=== PATIENT | female | born 1990 | race Caucasian/White ===

== ENCOUNTER 2025-05-22 14:30 | Emergency (ER) | payer BC, SELFPAY ==
[2025-05-22 14:32] VITALS: BP 157/112; PULSE 114; RESP 18; TEMP 35.8; O2SAT 99; BMI 43.9
--- NOTE | 2025-05-22 15:20 | EX.ED.GENINJ ---
HPI History of Present Illness Chief Complaint: Laceration Detail of Chief Complaint: Laceration left index finger Informant: patient Onset/Context/Timing Onset: Today and Hours Mechanism/Context: Incised Location of pain/injuries: Left hand (Left index finger between the MCP joint and PIP joint) Location: Left index finger as previously DrMaximo Current Severity: Patient states she has no sensation. 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 She was using a knife to cut off the tape with her right hand. She sustained a laceration radial side left index finger between the PIP and MCP joint. Patient states she has no sensation on that side of the finger and has difficulty moving her finger. Patient has no allergies. Patient ate at 1300. Patient has no allergies to medication. Prior similar symptoms: No Recent Illness/Hospitalization: No PFSH PFSH Home Medications Medication Instructions Recorded Last Taken Type cephalexin 500 mg capsule 500 mg PO Q6 #16 CAPSULES 05/22/25 Unknown Rx Allergy/AdvReac Type Severity Reaction Status Date / Time No Known Allergies Allergy Verified 05/22/25 14:31 Social History Smoking Status: Never smoker ROS ROS ED Constitutional Constitutional ED: Reports weight loss; Denies chills, fever(s), subjective or sweats Integumentary Reports other Details: Laceration between the MCP joint and PIP joint radial side left index finger ; Denies abscess, Abrasions or rash Neurologic Neurologic: Reports paresthesias LUE (Left index finger) EXAM Physical Exam Const Vital Signs: 05/22/25 14:32 Temperature 96.5 F L Temperature Source Temporal Pulse Rate 114 H Respiratory Rate 18 Blood Pressure 157/112 H Blood Pressure Mean 127 Pulse Ox 99 Oxygen Delivery Method Room Air Positive well nourished and well developed General Appearance ED: well developed and NAD HEENT HEENT Narrative: HEENT exam is grossly unremarkable. Resp normal respiratory effort Cardio regular rhythm Rate: regular rate Extremity Negative for normal to inspection or full ROM Extremity Narrative: Patient has a laceration between the PIP joint and MCP joint of the left index finger on the radial side. Patient is unable to flex her left index finger. Patient has no sensation on the radial side distal to the laceration. Patient is able to extend. Neuro oriented x3, CN's II-XII intact bilaterally, No moves all extremities, No no focal motor deficits and No no sensory deficits noted Sensorium / Orientation: alert Psych mental status grossly normal and thought process normal Skin Skin Narrative: Laceration as previously noted. PROC Procedures Upper Extremity Splints Upper Extremity Splint: - (Aluminum extension block splint fabricated) MDM MDM MDM Narrative Medical decision making narrative: Patient laceration will need closure. Contacted Dr. Ortiz who is on-call to discuss case determine if he would like to fix this primarily versus me closing and delay repair. Radiography Chest X-Ray - ED: Read by ED Physician (Three-view x-ray of the left index finger reveals no abnormality. Is no foreign body, there is no evidence of trauma to the phalanx. There is entirely reviewed interpreted by me at 1632.) Diagnostic Testing: Clinical Impression(s) from Imaging Studies Finger X-Ray 05/22/25 16:06 IMPRESSION: No acute fracture or dislocation. No radiopaque foreign body. Reading Location: [facility] [place] Management Discussion w/another healthcare provider: Wax Molder (Spoke with hand surgeon. He requested x-ray. X-ray was obtained. She is to call the office in the morning to be seen tomorrow after knee and schedule surgery) Discharge Plan Triage Chief Complaint: Laceration ED Provider: Butch Varner Dx/Rx/DC Orders Clinical Impression: Laceration of left index finger with tendon involvement, Laceration of blood vessel of left index finger, initial encounter Instructions: ED Hand Laceration Nerve Injury Prescriptions: New cephalexin 500 mg capsule 500 mg PO Q6 Qty: 16 0RF Primary Care Provider: Care Physician,No Primary Referrals: Solomon Ortiz MD [Med Staff - Active Staff, Plastic Surgery] - 1 Day for another exam Care Physician,No Primary [Primary Care Provider, Medical] Activity Restrictions/Additional Instructions: Call Dr. Solomon Ortiz's office tomorrow to be seen later in the day Print Language: [place] Disposition Disposition: Home, Self Care
--- NOTE | 2025-05-22 16:06 | RAD_ITS ---
PROCEDURE: LEFT FINGER(S) MIN 2 VIEWS 05/22/2025 REASON FOR EXAM: INJURY/PAIN TECHNIQUE: Procedure Code: RADFIN Modality: DX Procedure: FINGER(S) MIN 2 VIEWS Laterality: Left COMPARISON: None. FINDINGS: No acute fracture or dislocation. Alignment is anatomic. Preserved joint spaces. No aggressive osseous lesion. Mild soft tissue swelling. No radiopaque foreign body visualized. RAD/Finger(s) Min 2 Views IMPRESSION: No acute fracture or dislocation. No radiopaque foreign body. Reading Location: [id number]
[2025-05-22] MEDS: Lidocaine 1% (20 ml mdv) 20 ML Vial INFILT (16:38)
[2025-05-22 17:36] VITALS: BP 134/78; PULSE 64; RESP 18; TEMP 36.6; O2SAT 99
== END 2025-05-22 17:37 | disposition home or self-care (01) ==
PROVIDERS: Emergency Provider Emergency Medicine; Visit Provider Emergency Medicine
DX: S61.211A Laceration without foreign body of left index finger without damage to nail, initial encounter (principal); W26.0XXA Contact with knife, initial encounter; S65.912A Laceration of unspecified blood vessel at wrist and hand level of left arm, initial encounter
CPT/HCPCS: 12002; 73140; 99283

== ENCOUNTER 2025-05-24 09:59 | Day surgery (SDC) | payer BC, SELFPAY ==
[2025-05-24] VITALS (9 sets, daily range): BP systolic 124–143; BP diastolic 61–88; PULSE 75–88; RESP 16–18; TEMP 36.1–36.4; O2SAT 93–98; BMI 43.1
[2025-05-24 10:28] LABS: Internal QC Validated? YES +Cl - CLEAR BKGD; Pregnancy, Urine Negative Negative; Record Kit Lot#,Urine Preg 980607
[2025-05-24] MEDS: Lactated Ringers 1,000 ML 15 ML IV (10:47)
--- NOTE | 2025-05-24 11:00 | PCM.PRE.AN2 ---
ASA Classification* ASA Classification ASA Classification: 3 Assessment & Plan Anesthesia* Anesthesia Assessment Anesthesia Assessment: Discussed sedation and/or anesthesia options, risks, benefits, and alternatives with patient/parents/legal guardian/POA. Questions invited. The patient/parents/legal guardian/POA seems to understand and agrees to proceed with anesthesia plan. Reviewed the physical assessment, medical history, allergy history and patient home medications list prior to surgery/procedure/anesthetic and documented any changes. Performed airway and anesthesia risk assessments. Anesthesia Type Anesthesia Type: General History Source History Obtained from:: Patient and Chart Anesthesia Focused Assessment* Temperature: 97 F Pulse Rate: 88 Blood Pressure: 139/84 Respiratory Rate: 18 Pulse Ox: 98 Oxygen Delivery Method: Room Air Airway Assessment Mouth opens: >3 cm Mallampati Score: I Teeth Condition: Missing (Patient had a top left tooth removed secondary to impaction. Small remaining gap.) Neck Range of motion (ROM): Full ROM Labs Anesthesia Preop lab: CBC CHEMISTRY COAG Urine Test Negative Negative Today, 10:20 Pre-Assessment Diagnosis/Proposed Procedure Planned Operative Procedure(s): FLEXOR TENDON REPAIR LEFT INDEX FINGER Anesthesia History Anesthesia History - casino floor person: Anesthesia History - casino floor person Hx Hospitalization No 05/23/25 09:53 Any Problems With Anesthesia No 05/23/25 09:53 Cholinesterase deficiency No 05/23/25 09:53 You/Your Family Experience No 05/23/25 09:53 fever (hyperthermia) with Relationship Recent Exposure to Contagious No 05/24/25 10:31 Disease Does patient have nerve No 05/23/25 09:53 stimulator Patient instructed to have device shut off --Does patient have Pacemaker No 05/24/25 10:31 or ICD? When Was Last Pacemaker Check QUESTION #4 FULL TEXT: You/Your Family Experience fever (hyperthermia) with Anesthesia Last Oral Intake Last Oral intake: Last Oral Intake NPO since 04:00 05/24/25 10:31 Meds taken in AM with sips of Yes 05/24/25 10:31 water? Meds patient instructed to bupropion, buspirone, 05/24/25 10:31 take am of surgery desvenlafaxine, lamotrigine Any additional information?: Yes Meds taken in AM with sips of water?: Yes PONV PONV - casino floor person: PONV - casino floor person Female Yes 05/23/25 09:53 HX of Motion Sickness No 05/23/25 09:53 HX of N/V After Surgery No 05/23/25 09:53 Non-Smoker Yes 05/23/25 09:53 Duration of Surgery greater Yes 05/23/25 09:53 than 60 minutes Number of Risk Factors 3 05/23/25 09:53 PONV Score Moderate Risk 05/23/25 09:53 Height & Weight Height & Weight: Anesthesia: Height & Weight Height 5 ft 2 in 05/24/25 10:31 Weight: 107 kg 05/24/25 10:31 Body Mass Index (BMI) 43.1 05/24/25 10:31 Respiratory Assessment Respiratory Assessment - casino floor person: Respiratory Tract Infection Hx - casino floor person Hx Respiratory Tract Infection No 05/23/25 09:53 STOP Sleep Apnea STOP Sleep Apnea - casino floor person: STOP Sleep Apnea - casino floor person Hx Hypertension No 05/23/25 09:53 Hx Sleep Apnea No 05/23/25 09:53 CPAP BIPAP Do you snore loudly (louder No 05/23/25 09:53 than talking or can be heard Do you often feel tired/ No 05/23/25 09:53 fatigued/ sleepy during daytime? Has anyone observed you stop No 05/23/25 09:53 breathing during sleep? STOP Results Negative 05/23/25 09:53 QUESTION #5 FULL TEXT : Do you snore loudly (louder than talking or can be heard through closed doors)? Tobacco Use History Tobacco Use History - casino floor person: Tobacco Use History - casino floor person Tobacco Use Smoking Status Never smoker 05/23/25 13:23 Hx Tobacco Use No 05/23/25 09:53 Years Smoking Packs Smoked per Day Smoking Cessation Date was within the last 15 years Hx Smoking Cessation Date Hx Smoking Cessation Counseling Any additional information?: Yes Tobacco Use: - (Patient smokes marijuana. 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 Specify any problems Hx of Preganancy in last 3 N/A 05/23/25 09:53 Months Nurse Filling Out Transfusion NBUCHER 05/23/25 09:53 & Questions: Date: 05/23/25 05/23/25 09:53 Time: 09:55 05/23/25 09:53 Patient unable to answer at this time (ie. confused, unrespo /Reproduction History /Reproductive History - casino floor person: /Reproductive Hx- casino floor person Hx Now No 05/23/25 09:53 Gestational Age (in weeks): EDC: Hx Hx Para Hx Section SAB No 05/23/25 09:53 Active Medications Active Medications: Current Medications Generic Name Dose Route Start Last Admin Trade Name Freq PRN Reason Stop Dose Admin Cefazolin Sodium 2 gm/ Sodium 110 mls @ 200 mls/hr 05/24/25 10:30 Chloride IV 05/24/25 11:02 INTRAOP ONE Lactated Ringer's 1,000 mls @ 15 mls/hr 05/24/25 10:15 05/24/25 10:47 IV 15 mls/hr .Q48H VINCE Administration PFSH Medical History Wears glasses Depression Anxiety Marijuana use Migraine headache Gastric reflux Smoker Home Medications ?Medication ?Instructions ?Recorded ?Last Taken ?Type cephalexin 500 mg capsule 500 mg PO Q6 #16 CAPSULES 05/22/25 05/24/25 Rx MEDICAL MARIJUANA DAILY 05/23/25 05/21/25 History (INFORMATIONAL USE ONLY-PT USES MEDICAL MARIJUANA bupropion HCl 150 mg 24 hr tablet, 450 mg PO DAILY 05/23/25 05/24/25 History extended release buspirone 30 mg tablet 30 mg PO BID 05/23/25 05/24/25 History desvenlafaxine succinate 100 mg 100 mg PO DAILY 05/23/25 05/24/25 History tablet,extended release 24 hr dextroamphetamine-amphetamine 10 1 tab PO DAILY 05/23/25 05/23/25 History mg tablet dextroamphetamine-amphetamine ER 1 cap PO DAILY 05/23/25 05/23/25 History 30 mg 24hr capsule,extend release lamotrigine 100 mg tablet 100 mg PO BID 05/23/25 05/24/25 History Allergy/AdvReac Type Severity Reaction Status Date / Time No Known Allergies Allergy Verified 05/24/25 10:27 Surgical History History of repair of anterior cruciate ligament History of wisdom tooth extraction Social History Smoking Status: Never smoker alcohol intake: current substance use type: marijuana additional social history: pt denies vaping, denies blood clots, pt does use marijuana and edibles, pt does use aspirin and ibuprofen as needed Review of Systems (Anesthesia) ROS Narrative System reviewed and no additional complaints, except as documented.
--- NOTE | 2025-05-24 11:08 | PCM.HP.STD ---
HPI - General HPI Narrative ZEYAD HAMILTON, is a 35 F left hand dominant who presents for left index finger exploration and for possible flexor tendon injury and nerve graft. She sustained the injury on 05/22/25 attempting to remove tape with a knife for her hockey stick, resulting in a cut on the radial side of the left index finger, just proximal to the PIP joint yesterday, 22 May 2025. She presented to the ED evaluation and spoke with Dr. Ortiz. Xray was obtained which was negative for fracture or malalignment. Incision was repaired and she was started on course of oral keflex. She was evaluated in the office by Dr. Ortiz the following day. The patient was unable to bend the affected finger, indicating potential tendon involvement. She reports numbness along the radial side of her left index finger. Given her concerning symptoms Dr. Ortiz discussed surgical intervention. Of note she has history of carpal tunnel syndrome in the left hand, for which she previously received cortisone injections. She reports no recent symptoms related to carpal tunnel syndrome. Patient is left-hand dominant. She has no history personally or within her family of bleeding or clotting disorders. 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 She denies nicotine use, does not smoke. Denies changes in health status since visit yesterday. She continues to numbness and inability to bend her affected finger. Denies numbness, tingling, weakness in other digits. [facility] Medical History Wears glasses Depression Anxiety Marijuana use Migraine headache Gastric reflux Smoker Home Medications ?Medication ?Instructions ?Recorded ?Last Taken ?Type cephalexin 500 mg capsule 500 mg PO Q6 #16 CAPSULES 05/22/25 05/24/25 Rx MEDICAL MARIJUANA DAILY 05/23/25 05/21/25 History (INFORMATIONAL USE ONLY-PT USES MEDICAL MARIJUANA bupropion HCl 150 mg 24 hr tablet, 450 mg PO DAILY 05/23/25 05/24/25 History extended release buspirone 30 mg tablet 30 mg PO BID 05/23/25 05/24/25 History desvenlafaxine succinate 100 mg 100 mg PO DAILY 05/23/25 05/24/25 History tablet,extended release 24 hr dextroamphetamine-amphetamine 10 1 tab PO DAILY 05/23/25 05/23/25 History mg tablet dextroamphetamine-amphetamine ER 1 cap PO DAILY 05/23/25 05/23/25 History 30 mg 24hr capsule,extend release lamotrigine 100 mg tablet 100 mg PO BID 05/23/25 05/24/25 History Allergy/AdvReac Type Severity Reaction Status Date / Time No Known Allergies Allergy Verified 05/24/25 10:27 Surgical History History of repair of anterior cruciate ligament History of wisdom tooth extraction Social History Smoking Status: Never smoker alcohol intake: current substance use type: marijuana additional social history: pt denies vaping, denies blood clots, pt does use marijuana and edibles, pt does use aspirin and ibuprofen as needed ROS ROS Narrative General: Denies fever, chills HEENT: Denies headaches, vision changes, sore throat Cardio: Denies chest pain, leg edema Pulmonary: Denies shortness of pain, cough, wheezing GI: Denies nausea, vomiting, diarrhea Vital Signs Vital Signs Vital Signs: 05/24/25 10:31 05/24/25 10:31 05/24/25 11:08 Temperature 97 F L 97 F L Temperature Source Temporal Pulse Rate 88 88 Respiratory Rate 18 18 Respiratory Pattern Normal Blood Pressure 139/84 H 139/84 H Blood Pressure Mean 102 Blood Pressure Source Monitor Blood Pressure Position Semi-Fowlers Blood Pressure Location Right Arm Pulse Ox 98 98 Oxygen Delivery Method Room Air Room Air Weight Weight: 235 lb 14.314 oz Body Mass Index (BMI) 43.1 Physical Exam Narrative Afebrile/VSS. Lying in bed in no acute distress Speaking in full sentences with no increased effort or accessory muscle use Abdomen is soft, not distended Dressing was removed. Scant bloody drainage noted. Left index finger sutures are intact, no drainage or bleeding. Some swelling noted, no induration, erythema or streaking noted Able to initiate MCP flexion, unable to flex 90 degrees for MCP, no flexion with PIP, DIP. Able to extend and hyperextend. No collateral ligament laxity. Decreased sensation to light touch to radial side of left index finger. Intact to ulnar side. All other digits with normal sensation Cap refill <2 sec, pink and well perfused. Results Lab / Micro Data Labs: Laboratory Results - last 24 hr 05/24/25 10:20: Urine Test Negative
[2025-05-24] MEDS: Midazolam 2 MG/2 ML Syringe IV (11:43)
[2025-05-24] MEDS: Cefazolin 1 GM/5 ML Vial 2 GM IV (11:45)
[2025-05-24] MEDS: fentaNYL 100 MCG/2 ML Ampul IV (11:52)
[2025-05-24] MEDS: Lidocaine 1% (5 ml sdv) 5 ML Vial 10 ML IV (11:56)
[2025-05-24] MEDS: Lidocaine 1% /Epi 1:100 (20ml) 20 ML Vial (14:22)
--- NOTE | 2025-05-24 14:54 | PCM.POST.ANE ---
Anesthesia: Postop Eval I Current Vital Signs Temperature: 97.6 F Pulse Rate: 82 Blood Pressure: 141/88 Respiratory Rate: 16 Pulse Ox: 93 Oxygen Delivery Method: Room Air Assessment Airway patent: Yes Spontaneous unlabored respirations: Yes Mental status: Awake and Calm nausea: No Vomiting: No Anesthesia Complication: No Fluid Hydration Crystalloid volume administer (ml): 1,200 Total IV fluid infused: 1,200 Progress Note Anesthesia document: Postop Eval 1 completed: Yes
--- NOTE | 2025-05-24 16:15 | POSTOPAN2_ITS ---
Anesthesia Postop Eval I Sum Postop Eval Completion status Anesthesia document: Postop Eval 1 completed: Yes Anesthesia Postop Eval I Summary Anesthesia Postop Eval I Summary: Anesthesia Postop Eval I: Assessment Summary Airway patent Yes 05/24/25 14:54 NARCOTICS AND/OR VICE DETECTIVE.SKOBY Spontaneous unlabored Yes 05/24/25 14:54 NARCOTICS AND/OR VICE DETECTIVE.AL respirations Mental status Awake,Calm 05/24/25 14:54 NARCOTICS AND/OR VICE DETECTIVE.SKOBY nausea No 05/24/25 14:54 NARCOTICS AND/OR VICE DETECTIVE.SKOBY Vomiting No 05/24/25 14:54 NARCOTICS AND/OR VICE DETECTIVE.HUMREAOBPete Anesthesia Postop Eval I: Fluid Summary Crystalloid volume administer 1,200 05/24/25 14:54 NARCOTICS AND/OR VICE DETECTIVE.SKOBY (ml) Colloids volume administered ( ml) Blood Product volume administered (ml) Total IV fluid infused 1,200 05/24/25 14:54 NARCOTICS AND/OR VICE DETECTIVE.HUMERAOBPete Anesthesia Postop Eval I: Summary Notes Anesthesia Complication No 05/24/25 14:54 NARCOTICS AND/OR VICE DETECTIVE.AL Anesthesia Complication Comment: Post-operative progress note Anesthesia: Postop Eval II Evaluation Mental status: Awake Pain Level: 2 nausea: No Vomiting: No
--- NOTE | 2025-05-24 16:15 | PCM.POSTANE2 ---
Anesthesia Postop Eval I Sum Postop Eval Completion status Anesthesia document: Postop Eval 1 completed: Yes Anesthesia Postop Eval I Summary Anesthesia Postop Eval I Summary: Anesthesia Postop Eval I: Assessment Summary Airway patent Yes 05/24/25 14:54 MICRO LAB ANALYST.SKOBY Spontaneous unlabored Yes 05/24/25 14:54 MICRO LAB ANALYST.AL respirations Mental status Awake,Calm 05/24/25 14:54 MICRO LAB ANALYST.SKOBY nausea No 05/24/25 14:54 MICRO LAB ANALYST.SKOBY Vomiting No 05/24/25 14:54 MICRO LAB ANALYST.HUMERAOBPete Anesthesia Postop Eval I: Fluid Summary Crystalloid volume administer 1,200 05/24/25 14:54 MICRO LAB ANALYST.SKOBY (ml) Colloids volume administered ( ml) Blood Product volume administered (ml) Total IV fluid infused 1,200 05/24/25 14:54 MICRO LAB ANALYST.HUMERAOBPete Anesthesia Postop Eval I: Summary Notes Anesthesia Complication No 05/24/25 14:54 MICRO LAB ANALYST.AL Anesthesia Complication Comment: Post-operative progress note Anesthesia: Postop Eval II Evaluation Mental status: Awake Pain Level: 2 nausea: No Vomiting: No
--- NOTE | 2025-05-24 16:17 | PCM.OPRPT ---
Operative Report (Standard) Operative Information Date of Procedure: 05/24/25 Pre-Operative Diagnosis: 1) Left index finger radial digital nerve laceration 2) Left index finger zone 2 flexor digitorum superficialis (FDS) and zone 2 flexor digitorum profundus (FDP) lacerations Post-Operative Diagnosis: Same Surgery/Procedure Performed: 1) repair of left index finger zone 2 FDS laceration, ulnar slip 2) repair of left index finger zone 2 FDP laceration 3) repair of left index finger radial digital nerve with cadaver interposition allograft tong hooker: Yes Caregivers Homecare: Chacha Gonzales Tasks completed by historian research assistant: Closing and Retracting Type of Anesthesia: General/Supplemental (10 cc of quarter percent Marcaine at the end of the case) RN Documented Start/Stop Times: Operation Date: 05/24/25 11:30 Case Time Into Pre-Op 05/24/25 10:12 Out of Pre-Op 05/24/25 11:21 Anesthesia Start 05/24/25 11:42 Into Room 05/24/25 11:42 Procedure Start 05/24/25 12:11 Procedure End 05/24/25 14:33 Anesthesia End 05/24/25 14:44 Out of Room 05/24/25 14:44 Into Recovery 05/24/25 14:45 Into Phase II Recovery 05/24/25 15:16 Out of Recovery 05/24/25 15:16 Out of Phase II 05/24/25 15:56 Procedure Start Time: 12:11 Procedure Stop Time: 14:33 Select all DRAINS/GRAFTS/IMPLANTS that apply: Graft (Nerve allograft and nerve protector) Graft details: Advance nerve graft, 1 to 2 mm x 30 mm: [id number] AxoGaurd JONES+ nerve protector 2 x 2 cm: [id number] Estimated Blood Loss: 15 cc Specimen collected: No Description of surgery: Indications: Patient is a 35-year-old female who caught her left index finger on the radial side just proximal to the PIP joint on 22 May 2025 with a knife while cutting tape off of a hockey stick. She presents today for repair of presumably cut flexor tendons and the radial digital nerve. She understands the risks, benefits, and alternatives to procedure. Procedure details: Patient was correct identified in preoperative holding where she was marked. She was taken back to the operating room and administered general anesthesia and prepped and draped in sterile fashion. A timeout was performed. Tourniquet was applied on the left arm. Sutures were removed and the wound was irrigated with 1 L of normal saline. The Esmarch was used and the tourniquet was inflated to 250 mmHg. Under the 3.5 X loupe magnification, the laceration was incorporated into Jan-style flaps exposing the volar surface of the finger proximally and distally over P2 and proximally over the A1 blair. The cut ends of the radial digital nerve were identified. The FDS and FDP were found proximally at the level of the A1 blair which was released with a 15 blade scalpel. Using a tendon passer as the FDS and FDP were then passed under the A2 blair and kept into place with a Fredis needle, abutting the distal stumps of the FDP and the FDS. First the FDP was repaired with a 4-0 looped FiberWire (Tsuge-Renee 4 core strand repair), followed by running epitendinous 6-0 Prolene suture. The FDS was then repaired (ulnar slip only) with a 4-0 looped FiberWire (Tsuge-Renee 4 core strand repair), followed by running epitendinous 6-0 Prolene suture. Attention was then turned to the nerve repair which was performed with the microscope. There was a 1 cm gap between healthy fresh ends of the nerve (there was cut back to sprouting healthy appearing fascicles). An interposition nerve allograft was then placed (see notes above) so as to provide a tension-free repair using an 8-0 nylon interrupted suture on the proximal and distal ends of the nerve. The suture lines were then reinforced with nerve protectors wrapped around the anastomoses with small microvascular clips keeping them abutting the nerve and nerve allograft construct. The tourniquet was then let down and hemostasis obtained with bipolar electrocautery. The wound was further irrigated with Irrisept and copious amounts normal saline. A digital block was performed as noted above. A dorsal blocking splint was then applied with the fingers in slight flexion. Patient tolerated the procedure well. She was awakened and taken the PACU in stable condition. Postoperative plan: Patient will begin modified-Davalos flexor tendon protocol on Wednesday, 28 May 2025, for early range of motion protocol. She is not to use the left hand at all for anything other than hand therapy and is to stay in the splint until she is given a modified splint by the occupational therapist. Surgical Findings: Complete laceration of the radial digital nerve just proximal to the PIP joint Complete lacerations of the FDP and FDS just proximal to the PIP joint Complications Complications: No
== END 2025-05-24 15:56 | disposition home or self-care (01) ==
LOC: SDC 10:09 → AC 10:11
PROVIDERS: Anesthesiology; Referring Provider Surgery Plastic and Reconstructive Surgery; Visit Provider Surgery Plastic and Reconstructive Surgery
PROC: (CPT 64831; principal; 2025-05-24 11:15)
DX: S64.491A Injury of digital nerve of left index finger, initial encounter (principal); F41.9 Anxiety disorder, unspecified; F32.A Depression, unspecified; Z79.899 Other long term (current) drug therapy; X58.XXXA Exposure to other specified factors, initial encounter
CPT/HCPCS: 64831; 26350; 01810; 81025; C1762; J2405

== ENCOUNTER 2025-08-10 12:16 | Day surgery (SDC) | payer OTHER, SELFPAY ==
[2025-08-10] VITALS (10 sets, daily range): BP systolic 88–132; BP diastolic 64–81; PULSE 82–92; RESP 12–16; TEMP 36.1–36.8; O2SAT 91–100; BMI 43.9
[2025-08-10 12:40] LABS: Internal QC Validated? YES +Cl - CLEAR BKGD; Pregnancy, Urine Negative Negative
[2025-08-10] MEDS: Lactated Ringers 1,000 ML 15 ML IV (12:54)
--- NOTE | 2025-08-10 13:24 | PCM.PRE.AN2 ---
ASA Classification* ASA Classification ASA Classification: 3 Assessment & Plan Anesthesia* Anesthesia Assessment Anesthesia Assessment: Discussed sedation and/or anesthesia options, risks, benefits, and alternatives with patient/parents/legal guardian/POA. Questions invited. The patient/parents/legal guardian/POA seems to understand and agrees to proceed with anesthesia plan. Reviewed the physical assessment, medical history, allergy history and patient home medications list prior to surgery/procedure/anesthetic and documented any changes. Performed airway and anesthesia risk assessments. Anesthesia Type Anesthesia Type: General History Source History Obtained from:: Patient and Chart Anesthesia Focused Assessment* Temperature: 97.8 F Pulse Rate: 85 Blood Pressure: 131/64 Respiratory Rate: 16 Pulse Ox: 100 Oxygen Delivery Method: Room Air Airway Assessment Mouth opens: >3 cm Mallampati Score: I Teeth Condition: Intact Neck Range of motion (ROM): Full ROM Labs Anesthesia Preop lab: CBC CHEMISTRY COAG Urine Test Negative Negative Today, 12:30 Pre-Assessment Diagnosis/Proposed Procedure Planned Operative Procedure(s): LEFT FLEXOR TENDON REPAIR INDEX FINGER Anesthesia History Anesthesia History - implant polisher: Anesthesia History - implant polisher Hx Hospitalization No 08/09/25 11:04 Any Problems With Anesthesia No 08/09/25 11:04 Cholinesterase deficiency No 08/09/25 11:04 You/Your Family Experience No 08/09/25 11:04 fever (hyperthermia) with Relationship Recent Exposure to Contagious No 08/10/25 12:49 Disease Does patient have nerve No 08/09/25 11:04 stimulator Patient instructed to have device shut off --Does patient have Pacemaker No 08/10/25 12:49 or ICD? When Was Last Pacemaker Check QUESTION #4 FULL TEXT: You/Your Family Experience fever (hyperthermia) with Anesthesia Last Oral Intake Last Oral intake: Last Oral Intake NPO since 08:00 08/10/25 12:49 Meds taken in AM with sips of Yes 08/10/25 12:49 water? Meds patient instructed to see medlist 08/10/25 12:49 take am of surgery Any additional information?: Yes NPO since: 08:00 (Patient had water 8 AM.) Meds taken in AM with sips of water?: Yes PONV PONV - implant polisher: PONV - implant polisher Female Yes 08/09/25 11:04 HX of Motion Sickness No 08/09/25 11:04 HX of N/V After Surgery No 08/09/25 11:04 Non-Smoker Yes 08/09/25 11:04 Duration of Surgery greater Yes 08/09/25 11:04 than 60 minutes Number of Risk Factors 3 08/09/25 11:04 PONV Score Moderate Risk 08/09/25 11:04 Height & Weight Height & Weight: Anesthesia: Height & Weight Height 5 ft 2 in 08/10/25 12:49 Weight: 109 kg 08/10/25 12:49 Body Mass Index (BMI) 43.9 08/10/25 12:49 Respiratory Assessment Respiratory Assessment - implant polisher: Respiratory Tract Infection Hx - implant polisher Hx Respiratory Tract Infection No 08/09/25 11:04 STOP Sleep Apnea STOP Sleep Apnea - implant polisher: STOP Sleep Apnea - implant polisher Hx Hypertension No 08/09/25 11:04 Hx Sleep Apnea No 08/09/25 11:04 CPAP BIPAP Do you snore loudly (louder No 08/09/25 11:04 than talking or can be heard Do you often feel tired/ No 08/09/25 11:04 fatigued/ sleepy during daytime? Has anyone observed you stop No 08/09/25 11:04 breathing during sleep? STOP Results Negative 08/09/25 11:04 QUESTION #5 FULL TEXT : Do you snore loudly (louder than talking or can be heard through closed doors)? 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 Specify any problems Hx of Preganancy in last 3 No 08/09/25 11:04 Months Nurse Filling Out Transfusion DSCHRIBER 08/09/25 11:04 & Questions: Date: 08/09/25 08/09/25 11:04 Time: 11:05 08/09/25 11:04 Patient unable to answer at this time (ie. confused, unrespo /Reproduction History /Reproductive History - implant polisher: /Reproductive Hx- implant polisher Hx Now No 08/09/25 11:04 Gestational Age (in weeks): EDC: Hx Hx Para Hx Section SAB No 08/09/25 11:04 Does the father of the baby or his family experience fever w Father of the baby Malignant Hypertension history comment Active Medications Active Medications: Current Medications Generic Name Dose Route Start Last Admin Trade Name Freq PRN Reason Stop Dose Admin Lactated Ringer's 1,000 mls @ 15 mls/hr 08/10/25 13:00 08/10/25 12:54 IV 15 mls/hr .Q48H VINCE Administration PFSH Medical History Wears glasses Depression Anxiety Marijuana use Migraine headache Gastric reflux Smoker Home Medications ?Medication ?Instructions ?Recorded ?Last Taken ?Type MEDICAL MARIJUANA DAILY 05/23/25 05/21/25 History (INFORMATIONAL USE ONLY-PT USES MEDICAL MARIJUANA bupropion HCl 150 mg 24 hr tablet, 450 mg PO DAILY 05/23/25 08/10/25 History extended release buspirone 30 mg tablet 30 mg PO BID 05/23/25 08/10/25 History desvenlafaxine succinate 100 mg 100 mg PO DAILY 05/23/25 08/10/25 History tablet,extended release 24 hr dextroamphetamine-amphetamine 10 1 tab PO 1200 05/23/25 05/23/25 History mg tablet dextroamphetamine-amphetamine ER 1 cap PO DAILY 05/23/25 05/23/25 History 30 mg 24hr capsule,extend release lamotrigine 100 mg tablet 100 mg PO BID 05/23/25 08/10/25 History Allergy/AdvReac Type Severity Reaction Status Date / Time No Known Allergies Allergy Verified 08/10/25 12:35 Surgical History History of finger surgery History of repair of anterior cruciate ligament History of wisdom tooth extraction Social History Smoking Status: Never smoker alcohol intake: current substance use type: marijuana additional social history: pt denies vaping, denies blood clots, pt does use marijuana and edibles, pt does use aspirin and ibuprofen as needed Review of Systems (Anesthesia) ROS Narrative System reviewed and no additional complaints, except as documented.
--- NOTE | 2025-08-10 14:13 | PCM.HP.STD ---
HPI - General HPI Narrative ZEYAD HAMILTON, is a 35 F who presents with rupture of her left index finger flexor tendon repair. 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 She presents today for repair of the tendon in the setting of recent flexor tendon zone 2 repair 2.5 months ago. [facility] Medical History Wears glasses Depression Anxiety Marijuana use Migraine headache Gastric reflux Smoker Home Medications ?Medication ?Instructions ?Recorded ?Last Taken ?Type MEDICAL MARIJUANA DAILY 05/23/25 05/21/25 History (INFORMATIONAL USE ONLY-PT USES MEDICAL MARIJUANA bupropion HCl 150 mg 24 hr tablet, 450 mg PO DAILY 05/23/25 08/10/25 History extended release buspirone 30 mg tablet 30 mg PO BID 05/23/25 08/10/25 History desvenlafaxine succinate 100 mg 100 mg PO DAILY 05/23/25 08/10/25 History tablet,extended release 24 hr dextroamphetamine-amphetamine 10 1 tab PO 1200 05/23/25 05/23/25 History mg tablet dextroamphetamine-amphetamine ER 1 cap PO DAILY 05/23/25 05/23/25 History 30 mg 24hr capsule,extend release lamotrigine 100 mg tablet 100 mg PO BID 05/23/25 08/10/25 History Allergy/AdvReac Type Severity Reaction Status Date / Time No Known Allergies Allergy Verified 08/10/25 12:35 Surgical History History of finger surgery History of repair of anterior cruciate ligament History of wisdom tooth extraction Social History Smoking Status: Never smoker alcohol intake: current substance use type: marijuana additional social history: pt denies vaping, denies blood clots, pt does use marijuana and edibles, pt does use aspirin and ibuprofen as needed Patient's Goals Of Care . What would you like to achieve or improve as a result of your hospital stay?: Repair of the flexor tendon Vital Signs Vital Signs Vital Signs: 08/10/25 12:49 08/10/25 12:49 08/10/25 12:49 Temperature 97.8 F Temperature Source Temporal Pulse Rate 85 Respiratory Rate 16 Respiratory Pattern Normal Blood Pressure 131/64 H Blood Pressure Mean 86 Blood Pressure Source Monitor Blood Pressure Position Semi-Fowlers Blood Pressure Location Right Arm Baseline BP 131/64 Pulse Ox 100 Oxygen Delivery Method Room Air 08/10/25 13:32 Temperature 97.8 F Temperature Source Pulse Rate 85 Respiratory Rate 16 Respiratory Pattern Blood Pressure 131/64 H Blood Pressure Mean Blood Pressure Source Blood Pressure Position Blood Pressure Location Baseline BP Pulse Ox 100 Oxygen Delivery Method Room Air Weight Weight: 240 lb 4.862 oz Body Mass Index (BMI) 43.9 Physical Exam Narrative Patient endorses excellent sensation distal to the initial zone of injury on the left index finger, however on my exam she is unable to bend the DIP or the PIP joints (consistent with rupture of the flexor tendon). She does have a palmaris which was marked. Results Lab / Micro Data Labs: Laboratory Results - last 24 hr 08/10/25 12:30: Urine Test Negative Assessment & Plan Assessment/Plan (1) Laceration of flexor tendon of finger at hand level: PLAN: INTERVAL H&P PLAN, DATE OF SURGERY: We will proceed with surgery today. I talked to the patient extensively about the risks of surgery, including bleeding, infection, damage to surrounding structures including digital nerves or blood vessels, poor scaring, surgical site dehiscence and wound formation, need for wound care, need for repeat operations, failure to obtain the desired result, DVT/PE, and the risks of anesthesia including , including stroke (from low blood pressure/ischemia or clot). The benefits and alternatives of this surgery were also discussed. All of their questions were answered, and they agreed to proceed with surgery. Furthermore is talk to her about possible need for carpal tunnel release with possible injury to the median nerve/median nerve motor branch, and the possible need for a free palmaris tendon graft for repair of the flexor tendon and she agreed to this. I also talked her about the potential for closing the wound today without any reconstruction if there is significant scarring and the need for silicone rods for reconstruction (delayed reconstruction). She is in agreement with all these plans. She has no history of bleeding or clotting problems. No change in her health history since she was last seen. Patient will proceed with surgery today, and she understands the postoperative plan for hand therapy (flexor tendon protocol).
[2025-08-10] MEDS: Midazolam 2 MG/2 ML Syringe IV (14:20)
[2025-08-10] MEDS: Lidocaine 1% (5 ml sdv) 5 ML Vial IV (14:28)
[2025-08-10] MEDS: Cefazolin 1 GM/5 ML Vial 2 GM IV (14:31)
[2025-08-10] MEDS: fentaNYL 100 MCG/2 ML Ampul 200 MCG IV (16:08)
--- NOTE | 2025-08-10 16:54 | PCM.POST.ANE ---
Anesthesia: Postop Eval I Current Vital Signs Temperature: 98.3 F Pulse Rate: 82 Blood Pressure: 97/77 Respiratory Rate: 12 Pulse Ox: 94 Oxygen Delivery Method: Room Air Assessment Airway patent: Yes Spontaneous unlabored respirations: Yes Mental status: Awake and Calm nausea: No Vomiting: No Anesthesia Complication: No Fluid Hydration Crystalloid volume administer (ml): 1,700 Total IV fluid infused: 1,700 Progress Note Anesthesia document: Postop Eval 1 completed: Yes
--- NOTE | 2025-08-10 17:10 | PCM.OPRPT ---
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 teacher: Yes Science Consultant: May Goldberg Tasks completed by cement tester assistant: Retracting Type of Anesthesia: General/Supplemental (8 cc of quarter percent Marcaine for a local block at the end of the case) RN Documented Start/Stop Times: Operation Date: 08/10/25 14:00 Case Time Into Pre-Op 08/10/25 12:30 Anesthesia Start 08/10/25 14:20 Into Room 08/10/25 14:20 Out of Pre-Op 08/10/25 14:20 Procedure Start 08/10/25 14:51 Procedure End 08/10/25 16:43 Anesthesia End 08/10/25 16:49 Out of Room 08/10/25 16:49 Into Recovery 08/10/25 16:51 Procedure Start Time: 14:51 Procedure Stop Time: 16:43 Select all DRAINS/GRAFTS/IMPLANTS that apply: None Estimated Blood Loss: minimal Specimen collected: No Description of surgery: Indications: Sonali Toney is a delightful 35-year-old female who cut her left index finger on the radial side just proximal to the PIP joint on 22 May 2025 with a knife while cutting tape off of a field hockey stick. She underwent primary repair of the left index finger zone 2 flexor digitorum superficialis (FDS) and zone 2 FDP lacerations of the left index finger with a 4 core strand Tsuge-Renee style repair with 4-0 looped FiberWire and a 5-0 epitendinous Prolene suture on 24 May 2025. The radial digital nerve was also primarily repaired. 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 She presents today for secondary repair of the broken flexor tendon. I talked her about the risks, benefits, and alternatives to the surgery, and she understands that we are repairing the FDP only today as we will be significant inflammation within the flexor sheath. Procedure details: Patient was correctly identified and examined in preoperative holding. She was taken back to the operating room where she was administered general anesthesia and prepped and draped in sterile fashion. A tourniquet was insufflated on the left arm, and placed to 250 mmHg. We began the incision by opening the previous Jan style incisions that incorporated the laceration over the volar surface of the index finger from the level of the A1 blair to the level of P2. Care was taken to preserve and protect the neurovascular bundles/nerve repair on the radial side. The FDP was noted to have ruptured, with the proximal end retracted proximal to the residual A2 blair. There was passed through the existing A2 blair with a tendon passer and stabilized with a Fredis needle into position. The distal end of the FDP was then approximated to the proximal end of the FDP with a 4 core strand repair using 2 separate modified-Renee style suture repairs using 3-0 Ethibond. A running 5-0 Prolene epitendinous suture was then placed. The cascade of the index was acceptable, and there was minimal bunching. The wound was irrigated with copious months normal saline and Irrisept. The tourniquet was then let down and hemostasis obtained with bipolar electrocautery. The incisions were then closed with 4-0 nylon interrupted sutures. Patient was then placed in a dorsal blocking plaster splint with the fingers and wrist in slight flexion. She was awakened and taken to the PACU in stable condition. Postoperative plan: Patient is from [place] and is going back home for the holidays. Her mother has coordinated care with a hand therapist in [place] to initiate a flexor tendon repair protocol on Wednesday, 13 August 2025. I would recommend early passive range of motion only, and recommend initiation of a modified-Davalos protocol with a custom dorsal blocking Orthoplast splint (with the fingers in slight flexion). The hand therapist may call me on my cell phone at [phone] if there are any questions. Patient is to leave the current splint on until she sees a hand therapist, but I spoke to the patient's mother as well as the patient about the need for early initiation of range of motion within the first 3 to 5 days following the repair with a hand therapist, and they agreed to the plan. Surgical Findings: Residual A2 and A4 pulleys were intact Significant scar along the flexor sheath, which was released with the dissection Ruptured FDP and FDS tendons, but able to perform a secondary end-to-end repair of the left index finger FDP Complications Complications: No
--- NOTE | 2025-08-10 20:22 | POSTOPAN2_ITS ---
Anesthesia Postop Eval I Sum Postop Eval Completion status Anesthesia document: Postop Eval 1 completed: Yes Anesthesia Postop Eval I Summary Anesthesia Postop Eval I Summary: Anesthesia Postop Eval I: Assessment Summary Airway patent Yes 08/10/25 16:55 SOFT WORK WRAPPER LAYER AND EXAMINER.SHOF Spontaneous unlabored Yes 08/10/25 16:55 SOFT WORK WRAPPER LAYER AND EXAMINER.SHOF respirations Mental status Awake,Calm 08/10/25 16:55 SOFT WORK WRAPPER LAYER AND EXAMINER.SHOF nausea No 08/10/25 16:55 SOFT WORK WRAPPER LAYER AND EXAMINER.SHOF Vomiting No 08/10/25 16:55 SOFT WORK WRAPPER LAYER AND EXAMINER.SHOF Anesthesia Postop Eval I: Fluid Summary Crystalloid volume administer 1,700 08/10/25 16:55 SOFT WORK WRAPPER LAYER AND EXAMINER.SHOF (ml) Colloids volume administered ( ml) Blood Product volume administered (ml) Total IV fluid infused 1,700 08/10/25 16:55 SOFT WORK WRAPPER LAYER AND EXAMINER.SHOF Anesthesia Postop Eval I: Summary Notes Anesthesia Complication No 08/10/25 16:55 SOFT WORK WRAPPER LAYER AND EXAMINER.SHOF Anesthesia Complication Comment: Post-operative progress note Anesthesia: Postop Eval II Evaluation Mental status: Awake and Calm Pain Level: 4 nausea: No Vomiting: No Complications Anesthesia Complication: No
--- NOTE | 2025-08-10 20:22 | PCM.POSTANE2 ---
Anesthesia Postop Eval I Sum Postop Eval Completion status Anesthesia document: Postop Eval 1 completed: Yes Anesthesia Postop Eval I Summary Anesthesia Postop Eval I Summary: Anesthesia Postop Eval I: Assessment Summary Airway patent Yes 08/10/25 16:55 PROCESS IMPROVEMENT ENGINEER.SHOF Spontaneous unlabored Yes 08/10/25 16:55 PROCESS IMPROVEMENT ENGINEER.SHOF respirations Mental status Awake,Calm 08/10/25 16:55 PROCESS IMPROVEMENT ENGINEER.SHOF nausea No 08/10/25 16:55 PROCESS IMPROVEMENT ENGINEER.SHOF Vomiting No 08/10/25 16:55 PROCESS IMPROVEMENT ENGINEER.SHOF Anesthesia Postop Eval I: Fluid Summary Crystalloid volume administer 1,700 08/10/25 16:55 PROCESS IMPROVEMENT ENGINEER.SHOF (ml) Colloids volume administered ( ml) Blood Product volume administered (ml) Total IV fluid infused 1,700 08/10/25 16:55 PROCESS IMPROVEMENT ENGINEER.SHOF Anesthesia Postop Eval I: Summary Notes Anesthesia Complication No 08/10/25 16:55 PROCESS IMPROVEMENT ENGINEER.SHOF Anesthesia Complication Comment: Post-operative progress note Anesthesia: Postop Eval II Evaluation Mental status: Awake and Calm Pain Level: 4 nausea: No Vomiting: No Complications Anesthesia Complication: No
== END 2025-08-10 18:46 | disposition home or self-care (01) ==
LOC: SDC 12:18 → AC 12:19
PROVIDERS: Anesthesiology; Referring Provider Surgery Plastic and Reconstructive Surgery; Visit Provider Surgery Plastic and Reconstructive Surgery
PROC: (CPT 26373; principal; 2025-08-10 13:45)
DX: S66.117A Strain of flexor muscle, fascia and tendon of left little finger at wrist and hand level, initial encounter (principal); X58.XXXA Exposure to other specified factors, initial encounter; Y93.B9 Activity, other involving muscle strengthening exercises
CPT/HCPCS: 26373; 01810; 81025; J2405